=== PATIENT | male | born 1980 | race Two or more races ===

== ENCOUNTER 2020-06-28 03:33 | Emergency (ER) | payer OTHER ==
[~2020-06-28] VITALS: Ht 180.3 cm; Wt 90.7 kg
[2020-06-28] MEDS ORDERED: DICY20TA PO (03:44)
[2020-06-28] MEDS ORDERED: PEPCID AC20 MG PO (03:44)
== END 2020-06-28 12:11 | disposition home or self-care (01) ==
LOC: ER 03:33
DX: K29.00 Acute gastritis without bleeding (principal)

== ENCOUNTER 2021-02-12 01:40 | Emergency (ER) | payer OTHER ==
[~2021-02-12] VITALS: Ht 180.3 cm; Wt 86.2 kg
[~2021-02-12 01:40] MED LIST: DICY20TA PO; PEPCID AC20 MG PO
[2021-02-12] MEDS ORDERED: AMBIEN10 MG (01:53)
[2021-02-12] MEDS ORDERED: VISTARIL50 MG (01:53)
[2021-02-12] MEDS ORDERED: WELLBUTRIN SR150 MG (01:53)
[2021-02-12] MEDS ORDERED: CLONAZEPAM0.5 M1 (01:53)
[2021-02-12] MEDS ORDERED: TAMS0.4C (01:54)
[2021-02-12] MEDS ORDERED: PRILOSEC OTC20 MG (01:54)
[2021-02-12] MEDS ORDERED: PHENAZOPYRIDIN100 MG (01:54)
[2021-02-12] MEDS ORDERED: LEVOFLOXACIN750 MG PO (05:02)
[2021-02-12] MEDS ORDERED: URETRON D-S TAB1 TAB PO (05:02)
== END 2021-02-12 05:16 | disposition home or self-care (01) ==
LOC: ER 01:40
DX: N30.90 Cystitis, unspecified without hematuria (principal)

== ENCOUNTER 2021-02-16 04:05 | Emergency (ER) | payer OTHER ==
[~2021-02-16] VITALS: Ht 167.6 cm; Wt 85.3 kg
[~2021-02-16 04:05] MED LIST changes: +AMBIEN10 MG; +CLONAZEPAM0.5 M1; +LEVOFLOXACIN750 MG PO; +PHENAZOPYRIDIN100 MG; +PRILOSEC OTC20 MG; +TAMS0.4C; +URETRON D-S TAB1 TAB PO; +VISTARIL50 MG; +WELLBUTRIN SR150 MG
[2021-02-16] MEDS ORDERED: PEPCID AC20 MG PO (07:21)
[2021-02-16] MEDS ORDERED: CARAFATE1 GM PO (07:21)
[2021-02-16] MEDS ORDERED: ONDANSETRON HCL4 MG PO (07:21)
[2021-02-16] MEDS ORDERED: PROTONIX40 MG PO (07:21)
== END 2021-02-16 07:46 | disposition home or self-care (01) ==
LOC: ER 04:05
DX: K29.70 Gastritis, unspecified, without bleeding (principal); R10.11 Right upper quadrant pain; R11.2 Nausea with vomiting, unspecified

== ENCOUNTER 2021-03-12 01:14 | Emergency (ER) | payer OTHER ==
[~2021-03-12] VITALS: Ht 180.3 cm; Wt 86.2 kg
[~2021-03-12 01:14] MED LIST changes: +CARAFATE1 GM PO; +ONDANSETRON HCL4 MG PO; +PROTONIX40 MG PO
[2021-03-12] MEDS ORDERED: PYRIDIUM DS200 MG PO (03:29)
[2021-03-12] MEDS ORDERED: CIPRO500 MG PO (03:29)
== END 2021-03-12 03:35 ==
LOC: ER 01:14
DX: R30.0 Dysuria (principal); N30.90 Cystitis, unspecified without hematuria

== ENCOUNTER 2021-05-17 22:50 | Emergency (ER) | payer OTHER ==
[~2021-05-17] VITALS: Ht 180.3 cm; Wt 86.2 kg
[~2021-05-17 22:50] MED LIST changes: +CIPRO500 MG PO; +PYRIDIUM DS200 MG PO
== END 2021-05-18 01:17 | disposition home or self-care (01) ==
LOC: ER 22:50
DX: J45.901 Unspecified asthma with (acute) exacerbation (principal)

== ENCOUNTER → 2022-07-27 | Emergency (ER) | payer OTHER ==
[~2022-07-27] VITALS: Ht 185.4 cm; Wt 99.8 kg
== END | disposition designated cancer center or children's hospital (05) ==
LOC: ER 15:22
DX: R33.8 Other retention of urine (principal); Z91.013 Allergy to seafood; Z20.822 Contact with and (suspected) exposure to COVID-19